=== PATIENT | female | born 1990 | race Caucasian/White ===

== ENCOUNTER 2018-09-22 23:23 | Emergency (ER) | payer BC ==
[2018-09-22] MEDS ORDERED: HYOSCYAMINE SULFATE ODT 0.125 MG TAB.SUBL SL ONE (23:38)
[2018-09-22] MEDS ORDERED: ONDANSETRON HCL IV 4 MG/2 ML VIAL IV ONE (23:38)
[2018-09-22] MEDS ORDERED: 0.9 % SODIUM CHLORIDE 1,000 ML BAG IV ONE (23:38)
--- NOTE | 2018-09-22 23:45 | Emergency Department Record ---
History of Present Illness - General Chief Complaint: Abdominal Pain Stated Complaint: ABDOMINAL PAIN Time Seen by Provider: 09/22/18 23:36 Source: Patient Mode of Arrival: Ambulatory - History of Present Illness Initial Comments: The patient was seen at urgent care yesterday for this same complaint of upper abdominal pain. she states she was given a GI cocktail which did not help. Today she ate chicken strips and onion rings without problems, but tonight her symptoms increased in severity to 5-6/10. She has some nausea, but no vomiting, constipation, or diarrhea. She denies fevers, chills or other complaints. MD Complaint: Abdominal pain Onset/Timin -: Days(s) Location: LUQ, RUQ Radiation: Back, Bilateral flank Severity: Moderate Severity scale (1-10): 6 Quality: Burning, Cramping, Fullness, Sharp, Stabbing Consistency: Constant Improves With: Nothing Worsens With: Nothing Associated Symptoms: Denies other symptoms - Related Data LMP (females 10-50): Unknown Patient : No Home Medications Medication Instructions Recorded Confirmed Last Taken No Home Med [NO HOME MEDS] 09/22/18 09/22/18 Unknown Allergies Allergy/AdvReac Type Severity Reaction Status Date / Time No Known Drug Allergies Allergy Verified 09/22/18 23:36 Travel Screening - Travel/Exposure Within Last 30 Days Have you traveled within the last 30 days?: No - Travel/Exposure Within Last Year Have you traveled outside the [place] in the last year?: No - Additonal Travel Details Have you been exposed to anyone with a communicable illness?: No - Travel Symptoms Symptom Screening: None Review of Systems Reviewed: No additional complaints except as noted below Constitutional: Reports: As per HPI. Denies: Chills, Fever, Malaise, Night sweats, Weakness, Weight change Eyes: Reports: As per HPI. Denies: Eye discharge, Eye pain, Photophobia, Vision change ENT: Reports: As per HPI. Denies: Congestion, Dental pain, Ear pain, Epistaxis, Hearing loss, Throat pain Respiratory: Reports: As per HPI. Denies: Cough, Dyspnea, Hemoptysis, Stridor, Wheezes Cardiovascular: Reports: As per HPI. Denies: Arrhythmia, Chest pain, Dyspnea on exertion, Edema, Murmurs, Orthopnea, Palpitations, Paroxysmal nocturnal dyspnea, Rheumatic Fever, Syncope Endocrine: Reports: As per HPI. Denies: Fatigue, Heat or cold intolerance, Polydipsia, Polyuria Gastrointestinal: Reports: As per HPI. Denies: Abdominal pain, Constipation, Diarrhea, Hematemesis, Hematochezia, Melena, Nausea, Vomiting Genitourinary: Reports: As per HPI. Denies: Abnormal menses, Discharge, Dyspareunia, Dysuria, Frequency, Hematuria, Incontinence, Retention, Urgency Musculoskeletal: Reports: As per HPI. Denies: Arthralgia, Back pain, Gout, Joint swelling, Myalgia, Neck pain Skin: Reports: As per HPI. Denies: Bruising, Change in color, Change in hair/nails, Lesions, Pruritus, Rash Neurological: Reports: As per HPI. Denies: Abnormal gait, Confusion, Headache, Numbness, Paresthesias, Seizure, Tingling, Tremors, Vertigo, Weakness Psychiatric: Reports: As per HPI. Denies: Anxiety, Auditory hallucinations, Depression, Homicidal thoughts, Suicidal thoughts, Visual hallucinations Hematological/Lymphatic: Reports: As per HPI. Denies: Anemia, Blood Clots, Easy bleeding, Easy bruising, Swollen glands Past Medical History - SOCIAL HISTORY Smoking Status: Never smoker Alcohol Use: None Drug Use: None - RESPIRATORY Hx Respiratory Disorders: Yes Hx Asthma: Yes - CARDIOVASCULAR Hx Cardio Disorders: No - NEURO Hx Neuro Disorders: No - GI Hx GI Disorders: No - Hx Genitourinary Disorders: No - ENDOCRINE Hx Endocrine Disorders: No - MUSCULOSKELETAL Hx Musculoskeletal Disorders: No - PSYCH Hx Psych Problems: Yes Hx Anxiety: Yes Hx Depression: Yes - HEMATOLOGY/ONCOLOGY Hx Hematology/Oncology Disorders: No Family Medical History Any Significant Family History?: Yes Hx Heart Disease: Grandparents Physical Exam - General General Appearance: Alert, Oriented x3, Cooperative, No acute distress (appears very comfortable, no distress evident) - Head Head exam: Normal inspection - Eye Eye exam: Normal appearance, PERRL Pupils: Normal accommodation - ENT ENT exam: Normal exam, Mucous membranes moist, Normal external ear exam, Normal orophraynx, TM's normal bilaterally Ear exam: Normal external inspection. negative: External canal tenderness Nasal Exam: Normal inspection. negative: Discharge, Sinus tenderness Mouth exam: Normal external inspection, Tongue normal Teeth exam: Normal inspection. negative: Dental caries Throat exam: Normal inspection. negative: Tonsillar erythema, Tonsillar exudate - Neck Neck exam: Normal inspection, Full ROM. negative: Tenderness - Respiratory Respiratory exam: Normal lung sounds bilaterally. negative: Respiratory distress - Cardiovascular Cardiovascular Exam: Regular rate, Normal rhythm, Normal heart sounds - GI/Abdominal GI/Abdominal exam: Soft, Normal bowel sounds, Other (she is nontender on palpation but states her discomfort is around her belly button). negative: Tenderness - Rectal Rectal exam: Deferred - exam: Deferred - Extremities Extremities exam: Normal inspection, Full ROM, Normal capillary refill. negative: Calf tenderness, Pedal edema, Tenderness - Back Back exam: Reports: Normal inspection, Full ROM. Denies: CVA tenderness (R), CVA tenderness (L), Muscle spasm, Rash noted, Tenderness - Neurological Neurological exam: Alert, CN II-XII intact, Normal gait, Oriented X3, Reflexes normal. negative: Motor sensory deficit - Psychiatric Psychiatric exam: Normal affect, Normal mood - Skin Skin exam: Dry, Intact, Normal color, Warm Course Vital Signs 09/22/18 23:28 Temperature 97.7 F Pulse Rate [ 57 L Pulse Ox Probe] Respiratory 20 Rate Blood Pressure 141/95 [Left Arm] Pulse Ox 99 - Reevaluation(s) Reevaluation #1: No change in nausea after zofran. No change in abdominal pain after s.l. levsin. Patient appears completely comfortable. Abdomen remains non-tender to palpation. 09/23/18 01:30 Medical Decision Making - Management Options MDM Management: No Additional Work-up Planned - Data Complexity MDM Data: Labs Ordered and/or Reviewed (All laboratory results wnl except for Urine SG >1.030), X-Ray Ordered and/or Reviewed (Abd/Pelvis CT: No acute bowel pathology demonstrated. 1.7 by 1.2 peripherally enhancing corpus luteum, no gross pelvic fluid. Per [facility].) - Lab Data Result diagrams: 09/22/18 23:48 Disposition Disposition: Discharge Clinical Impression: Abdominal pain Qualifiers: Abdominal location: periumbilical Qualified Code(s): R10.33 - Periumbilical pain Disposition: Home, Self-Care Condition: (1) Good Instructions: Abdominal Pain (ED) Additional Instructions: Call PCP Monday for recheck of abdominal pain in office Monday. Call Dr. Lopez [employer] Consultant for recheck for endometriosis. Increase fluid intake; you were very dehydrated this visit. Tylenol alternated with ibuprofen as directed as needed for pain. Quality - Quality Measures Quality Measures: N/A - Blood Pressure Screening Does Patient Have Any of the Following: No Blood Pressure Classification: Pre-Hypertensive BP Reading Systolic Measurement: 129 Diastolic Measurement: 78 Screening for High Blood Pressure: < Pre-Hypertensive BP, F/U Documented > [G8950] Pre-Hypertensive Follow-up Interventions: Follow-up with rescreen every year.
[2018-09-22 23:57] LABS: ABSOLUTE NEUTROPHIL COUNT 5.34; BASO % 0.3 % (0-6); EOS % 2.6 % (0-6); GRAN % 59.4 % (47-80); HEMOGLOBIN 13.3 gm/dl (11.6-16.0); LYMPH % 30.4 % (16-45); MEAN CELL VOLUME 90.3 fl (81-97); MEAN CORPUSCULAR HGB CONC 33.3 g/dl (32-36); MONO % 7.3 % (0-9); PLATELET COUNT 329 K/uL (130-400); RED BLOOD COUNT 4.43 M/uL (3.80-5.40); RED CELL DISTRIBUTION WIDTH 13.7 % (11.5-14.5)
[2018-09-23 00:11] LABS: URINE APPEARANCE CLEAR; URINE BILIRUBIN NEGATIVE (NEGATIVE); URINE BLOOD NEGATIVE (NEGATIVE); URINE COLOR YELLOW; URINE GLUCOSE (UA) NEGATIVE (NEGATIVE); URINE KETONE NEGATIVE (NEGATIVE); URINE LEUKOCYTE ESTERASE NEGATIVE (NEGATIVE); URINE NITRITE NEGATIVE (NEGATIVE); URINE PROTEIN NEGATIVE (NEGATIVE); URINE UROBILINOGEN 0.2 E.U./dL (0.20 - 1.00)
[2018-09-23] MEDS ORDERED: KETOROLAC 30 MG/ML VIAL IVP ONE (01:19)
[2018-09-23 01:39] LABS: AMPHETAMINE SCREEN URINE NOT DETECTED; BARBITURATE SCREEN URINE NOT DETECTED; BENZODIAZEPINE SCREEN URINE NOT DETECTED; COCAINE SCREEN URINE NOT DETECTED; METHADONE SCREEN URINE NOT DETECTED; METHAMPHETAMINE SCREEN NOT DETECTED; OPIATE SCREEN URINE NOT DETECTED; OXYCODONE SCREEN URINE NOT DETECTED; PHENCYCLIDINE SCREEN URINE NOT DETECTED; PROPOXYPHENE SCREEN URINE NOT DETECTED; THC SCREEN URINE NOT DETECTED; TRICYCLIC ANTIDEPRESSANT SCRN NOT DETECTED
--- NOTE | 2018-09-26 05:45 | CT SCAN REPORT ---
EXAM: CT SCAN ABDOMEN/PELVIS W CONTRAST HISTORY: ABDOMINAL PAIN IN THE PERIUMBILICAL REGION FOR TWO DAYS. HYSTERECTOMY. TECHNIQUE: Axial CT scan of the abdomen and pelvis obtained following IV contrast administration. No oral contrast utilized at the referring physician's request. Please see the medical record for IV contrast specifics. Preliminary report provided by [facility]. COMPARISON: There was a prior CT performed over ten years ago on 01/29/08, which has been scanned into PACS. However, the protocol utilized to scan the images into PACS results in virtually nondiagnostic quality images. Report of the prior CT is also included within PACS and is readable. FINDINGS: No calcified gallstones are seen within the gallbladder. There is probably some minor periportal edema within the liver. There is also a low- attenuation focus in the medial segment left lobe of the liver measuring about 2.2 x 1.2 cm in size today. Based on the report of a 2.2 x 1.4 cm hypodensity in the medial segment left lobe of the liver on the prior CT report of 01/29/08 as well, this was probably present previously and is likely essentially unchanged, probably an area of focal fatty infiltration or a small hemangioma. Allowing for this, no definite new hepatic mass evident. No definite splenic, adrenal, pancreatic, or renal mass identified. Uterus not identified consistent with the surgical history. There is probably a small low-attenuation mass within the left ovary only about 1.4 cm in size with a slightly enhancing rim, likely representing a dominant follicle. Evaluation of the bowel extremely limited without oral contrast. Appendix somewhat poorly seen without oral contrast but no definite appendicitis identified. No free intraperitoneal air or free intraperitoneal fluid identified. There is a somewhat anomalously large right transverse process of L5 with some degenerative change along the adjacent anterior aspect of the right SI joint. IMPRESSION: 1. POSTOP HYSTERECTOMY. 2. PROBABLE 1.4 CM DOMINANT FOLLICLE, LEFT OVARY. 3. MINOR PERIPORTAL EDEMA. SINGLE LOW-ATTENUATION FOCUS MEDIAL SEGMENT LEFT LOBE OF THE LIVER PROBABLY UNCHANGED FROM A MUCH EARLIER CT SCAN OF 01/29/08 BASED ON THE PRIOR REPORT. PRIOR SCANNED IMAGES FROM THAT OLD CT ARE NONDIAGNOSTIC IN QUALITY. 4. APPENDIX NOT WELL SEEN BUT NO APPENDICITIS EVIDENT. NO FREE AIR OR FREE FLUID EVIDENT. JOB NUMBER: [id number] MTDD
== END 2018-09-23 02:11 | disposition home or self-care (01) ==
LOC: ER 23:23
DX: R10.33 Periumbilical pain (principal); R11.0 Nausea
CPT/HCPCS: 99284 ×2; 96374; 96375; 83690; 85025; 81003; 80305; 74177; Q9967; J1980; J1885; J2405; J7030

== ENCOUNTER 2019-06-14 10:16 | Emergency (ER) | payer SELFPAY ==
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
== END 2019-06-14 11:26 | disposition home or self-care (01) ==
LOC: ER 10:16
DX: S16.1XXA Strain of muscle, fascia and tendon at neck level, initial encounter (principal); R51 Headache; R42 Dizziness and giddiness; V43.62XA Car passenger injured in collision with other type car in traffic accident, initial encounter
CPT/HCPCS: 70450; 72125; 99284